=== PATIENT | female | born 1995 | race Caucasian/White ===

== ENCOUNTER → 2023-01-04 | Outpatient (CLI) | payer MEDICAID, SELFPAY | END | disposition home or self-care (01) | LOC: LAB 14:30 | PROVIDERS: Visit Provider Obstetrics & Gynecology | DX: O26.851 Spotting complicating pregnancy, first trimester (principal); Z3A.00 Weeks of gestation of pregnancy not specified | CPT/HCPCS: 36415; 84702; 86850; 86870; 86900; 86901 ==

== ENCOUNTER → 2023-01-08 | Outpatient (CLI) | payer MEDICAID, SELFPAY | END | disposition home or self-care (01) | PROVIDERS: Referring Provider Obstetrics & Gynecology; Visit Provider Obstetrics & Gynecology | DX: R76.0 Raised antibody titer (principal) | CPT/HCPCS: 36415 ==

== ENCOUNTER → 2023-01-11 | Outpatient (CLI) | payer MEDICAID, SELFPAY ==
--- NOTE | 2023-01-11 14:10 | US_ITS ---
STUDY: FIRST TRIMESTER OBSTETRICAL ULTRASOUND REASON FOR EXAM: Female, 27 years old well being LMP: November 21, 2022. TECHNIQUE: Transvaginal TECHNICAL QUALITY: Adequate. PRIOR ULTRASOUND: None. FINDINGS: There is visualization of a single gestational sac in a normal intrauterine position. The mean sac diameter (MSD) measures 2.96 cm, indicating an estimated gestational age (EGA) of 8 weeks, 1 days. The gestational sac shape is within normal limits. There is a visualized yolk sac. The yolk sac measures 2.9 mm. The placenta is non-visualized. There is visualization of a live embryo. The crown-rump length (CRL) measures 1.52 cm, indicating an estimated gestational age (EGA) of 7 weeks, 6 days. There is demonstrated cardiac activity with a heart rate of 168 bpm. The estimated gestation age (EGA) by LMP is 7 weeks, 2 days. The estimated date of delivery (ABDIEL) by LMP is August 28, 2023. The estimated gestation age (EGA) by US is 8 weeks, 0 days. The estimated date of delivery (ABDIEL) by US is August 23, 2023. The uterus measures 11 cm x 7 cm x 5.8 cm. There is no demonstrated uterine fibroid. The cervix is closed. The right ovary measures 3.3 cm x 2.3 cm x 2.2 cm. There is no right ovarian cyst. There is no visualized right adnexal mass or complex lesion. The left ovary measures 2.7 cm x 1.5 cm x 1.5 cm. There is no left ovarian cyst. There is no visualized left adnexal mass or complex lesion. There is no fluid in the cul de sac. US/Transvaginal w/Preg US IMPRESSION: Single live intrauterine gestation with a mean gestational age of 8 weeks. Electronically Signed: Wenceslao Myers MD at 15:43 EDT ,
== END | disposition home or self-care (01) ==
LOC: OPUS 14:09
PROVIDERS: Referring Provider Obstetrics & Gynecology; Visit Provider Obstetrics & Gynecology
DX: O26.851 Spotting complicating pregnancy, first trimester (principal); Z3A.00 Weeks of gestation of pregnancy not specified
CPT/HCPCS: 76817

== ENCOUNTER → 2023-01-25 | Outpatient (CLI) | payer MEDICAID, SELFPAY ==
[2023-01-27 13:07] LABS: Chlamydia By Nucleic Acid AMP Negative (Negative); Gonococcus By Nucleic Acid AMP Negative (Negative)
[2023-01-31 16:34] LABS: HPV Reflexed? NOT INDICATED
== END | disposition home or self-care (01) ==
LOC: LABSPEC 11:33
PROVIDERS: Referring Provider Obstetrics & Gynecology; Visit Provider Obstetrics & Gynecology
DX: Z34.90 Encounter for supervision of normal pregnancy, unspecified, unspecified trimester (principal)
CPT/HCPCS: 87086; 87491; 87591; 88175; G0145

== ENCOUNTER → 2023-01-30 | Outpatient (CLI) | payer MEDICAID, SELFPAY ==
[2023-01-30 12:04] LABS: Absolute Lymphocyte Count 2.41 X10^3/uL (0.83-4.51); Absolute Neutrophil Count 5.5 X10^3/uL (2.0-7.7); Basophil# 0.01 X10^3/uL; Basophil% 0.1 % (0-1); Eosinophil# 0.11 X10^3/uL; Eosinophils% 1.3 % (0-5); Hematocrit 36.2 % (37-47); Hemoglobin 12.2 g/dL (12.0-15.0); Lymphocyte # 2.41 X10^3/ul (0.83-4.51); Lymphocyte % 28.1 % (19-41); Mean Corp Hgb Conc 33.7 g/dL (32-36); Mean Corpuscular Hgb 30.1 pg (27.0-32.0); Mean Corpuscular Volume 89.4 fL (81-99); Mean Platelet Vol. 9.9 fl (6.2-12.0); Monocyte# 0.56 X10^3/uL; Monocyte% 6.5 % (0-10); NRBC Flagged by Analyzer 0 % (0-5); Neutrophil # 5.47 X10^3/uL (2.7-7.7); Neutrophil % 63.7 % (47-70); Platelet Count 239 K/mm3 (150-450); RBC Distribution Width SD 42.5 fl (35.1-43.9); Red Blood Count 4.05 M/mm3 (4.2-5.4); White Blood Count 8.6 K/mm3 (4.4-11.0)
[2023-01-30 12:45] LABS: NATERA MAILED SPECIMEN
[2023-01-30 13:35] LABS: HIV - WCH Non-Reactive (Nonreactive); Hepatitis B Surface Antigen Non-Reactive (Nonreactive); Hepatitis C Antibody Non-Reactive (Nonreactive); Rubella IgG Reactive (Nonreactive); Syphilis Antibodies Non-reactive
== END | disposition home or self-care (01) ==
LOC: PAVLAB 11:41
PROVIDERS: Referring Provider Obstetrics & Gynecology; Visit Provider Obstetrics & Gynecology
DX: Z34.81 Encounter for supervision of other normal pregnancy, first trimester (principal)
CPT/HCPCS: 36415; 82950; 85025; 86703; 86762; 86780; 86803; 86850; 86900; 86901; 87340

== ENCOUNTER → 2023-03-19 | Outpatient (CLI) | payer MEDICAID, SELFPAY | END | disposition home or self-care (01) | PROVIDERS: Referring Provider Nurse Practitioner Women's Health; Visit Provider Nurse Practitioner Women's Health | DX: Z36.9 Encounter for antenatal screening, unspecified (principal) | CPT/HCPCS: 36415 ==

== ENCOUNTER → 2023-04-16 | Outpatient (CLI) | payer MEDICAID, SELFPAY ==
--- NOTE | 2023-04-16 09:55 | US_ITS ---
INDICATION: anatomy EXAMINATION: Ultrasound US OB Complete W/ Detail single or first gestation TECHNIQUE: Transabdominal pelvic ultrasound was performed. COMPARISON: Prior study dated: 01/11/2023 LMP: 11/21/2022 Beta-hCG: Unknown. Provided EGA: 20 weeks, 6 days FINDINGS: INTRAUTERINE GESTATION(s): Single. ESTIMATED GESTATIONAL AGE: 20 weeks, 6 days ESTIMATED DUE DATE (ABDIEL): 08/28/2022 HEART MOTION is 153 bpm. AMNIOTIC FLUID INDEX (WILBER): Not provided. Largest pocket measuring 5 x 3 cm. ESTIMATED WEIGHT: 09[birth year]14/1989 5 g Percentile 54th%. BIOPHYSICAL PROFILE (BPP): BIOMETRIC MEASUREMENTS: HEAD CIRCUMFERENCE: 19.1 cm which corresponds to 21 weeks, 2 days. BIPARIETAL DIAMETER: 5.0 cm which corresponds to 21 weeks, 2 days. ABDOMINAL CIRCUMFERENCE: 16.6 cm which corresponds to 21 weeks, 4 days. FEMORAL LENGTH: 3.3 cm which corresponds to 20 weeks, 1 day. anatomy: Normal cranium, chest, abdomen/pelvis, spine and extremities. PRESENTATION: Breech PLACENTA: Posterior. There is no placenta previa or abruption. A succenturiate lobe is present. CERVIX: The cervix is closed, and measures 5.5 cm. MATERNAL OVARIES: No adnexal masses. FREE FLUID: None. US/OB Anatomy w/ Transvaginal IMPRESSION: * Single live intrauterine with an estimated gestational age by current ultrasound of 20 weeks, 6 days. * Estimated weight is 395 g which is in the 54th percentile. * Fetus is in the breech position. * Succenturiate lobe lobe of the placenta present. Electronically Signed: Rafita Chan MD at 16:59 EDT ,
== END | disposition home or self-care (01) ==
LOC: OPUS 09:54 → US 09:55
PROVIDERS: Referring Provider Obstetrics & Gynecology; Visit Provider Obstetrics & Gynecology
DX: O09.91 Supervision of high risk pregnancy, unspecified, first trimester (principal); Z3A.13 13 weeks gestation of pregnancy
CPT/HCPCS: 76805; 76817

== ENCOUNTER → 2023-05-28 | Outpatient (CLI) | payer MEDICAID, SELFPAY ==
[2023-05-28 10:07] LABS: Absolute Lymphocyte Count 1.96 X10^3/uL (0.83-4.51); Absolute Neutrophil Count 7.8 X10^3/uL (2.0-7.7); Basophil# 0.02 X10^3/uL; Basophil% 0.2 % (0-1); Hematocrit 34.1 % (37-47); Hemoglobin 11.2 g/dL (12.0-15.0); Lymphocyte # 1.96 X10^3/ul (0.83-4.51); Lymphocyte % 18.6 % (19-41); Mean Corp Hgb Conc 32.8 g/dL (32-36); Mean Corpuscular Volume 91.4 fL (81-99); Mean Platelet Vol. 10.5 fl (6.2-12.0); Monocyte% 5.7 % (0-10); NRBC Flagged by Analyzer 0 % (0-5); Neutrophil # 7.79 X10^3/uL (2.7-7.7); Neutrophil % 74.1 % (47-70); Platelet Count 206 K/mm3 (150-450); RBC Distribution Width CV 12.4 % (11.6-14.6); RBC Distribution Width SD 41.5 fl (35.1-43.9); Red Blood Count 3.73 M/mm3 (4.2-5.4); White Blood Count 10.5 K/mm3 (4.4-11.0)
[2023-05-28 10:26] LABS: Glucose Challenge Gest 1H 50g 117 mg/dL (70-140)
[2023-05-28 11:00] LABS: HIV - WCH Non-Reactive (Nonreactive); Syphilis Antibodies Non-reactive
== END | disposition home or self-care (01) ==
LOC: PAVLAB 09:47
PROVIDERS: Referring Provider Advanced Practice Midwife; Visit Provider Advanced Practice Midwife
DX: Z00.00 Encounter for general adult medical examination without abnormal findings (principal)
CPT/HCPCS: 36415; 82950; 85025; 86703; 86780

== ENCOUNTER → 2023-08-03 | Outpatient (CLI) | payer MEDICAID, SELFPAY ==
--- OUTSIDE RECORDS SUMMARY | 2023-08-03 16:47 | XMS RPT_ITS | CCD ---
Author Name Unknown Address [address] [place] [address] Organization [facility] Care Team Providers Care Sanitation Manager Name Role Phone [place], Asif W Unavailable Unavailable [place], Asif W Unavailable Unavailable No Doctor Assigned, Nodr Unavailable Unavail able No Doctor Assigned, Nodr Unavailable Unavail able Monalisa, Asif W Unavailable Unavailable [place], Asif W Unavailable Unavailable Rafita Reyes Unavailable Unavailable No Doctor Assigned, Nodr Unavailable Unavail able Rafita Reyes Unavailable Unavailable No Doctor Assigned, Nodr Unavailable Unavail able Rafita Reyes Unavailable Unavailable Rafita Reyes Unavailable Unavailable No Doctor Assigned, Nodr Unavailable Unavail able Rafita Reyes Unavailable Unavailable Alysia White Unavailable Unavailable No Doctor Assigned, Nodr Unavailable Unavail able No Doctor Assigned, Nodr Unavailable Unavail able Sokari, Telemate Unavailable Unavailable Sokari, Telemate Unavailable Unavailable Rafita Reyes Unavailable Unavailable No Doctor Assigned, Nodr Unavailable Unavail able Rafita Reyes Unavailable Unavailable Rafita Reyes Unavailable Unavailable No Doctor Assigned, Nodr Unavailable Unavail able Ms. Mara Martin Attending Unavail able Mara Tillman Primary Care DIETER Brown Primary Care Unavailable VENKAT WEEMS Referring UnavailSARAH Fine Attending Unavailable DIETER BARRETO Primary Care Unavailable VENKAT WEEMS Referring UnavailSARAH Fine Attending Unavailable VENKAT WEEMS Referring UnavailBRENDON Hopkins Attending Unavailable DIETER BARRETO Primary Care Unavailable Allergies Allergy Classification Reported Allergen(s) Allergy Type Date of Onset Reaction(s) Facility (1 source) No Known Medication Allergies; Translations: [No Known Medication Allergies] Propensity to adverse reactions to drug (disorder) [facility] Repository Problems Problem Classification Problem Date Documented Da te Episodic/Chronic Influenza (1 source) Influenza due to other identified influenza virus with other respiratory manifestations; Translations: [Flu due to oth ident influenza virus w oth resp manifest] Onset: 07-04-2022 Episodic Malaise and fatigue (1 source) Other fatigue; Translations: [Other fatigue] Onset: 07-04-2022 Episodic Residual codes; unclassified (1 source) Pain, unspecified; Translations: [Pain, unspecified] Onset: 07-04-2022 Episodic Unclassified (1 source) Contact with and (suspected) exposure to COVID-19; Translations: [Contact with and (suspected) exposure to COVID-19] Onset: 07-04-2022 Unclassified (1 source) Cough, unspecified; Translations: [Cough, unspecified] Onset: 07-04-2022 Results Test Name Value Interpretation Reference Range Facil ity Encounters Encounter Date Encounter Type Care Provider Facility Start: 02-21-2023 End: 02-21-2023 ambulatory VENKAT WEEMS [facility] Start: 02-14-2023 End: 02-14-2023 ambulatory DIETER BARRETO [facility] Start: 07-04-2022 End: 07-04-2022 Emergency department patient visit Ms. Mara Kesslerdanaemichelle Facility:[id number] Start: 09-12-2017 End: 09-12-2017 Ambulatory Rafita Reyes Facility:[facility] Start: 09-04-2017 End: 09-05-2017 Ambulatory Rafita Reyes Facility:[facility] Start: 09-04-2017 End: 09-04-2017 Ambulatory Alysia White Facility:[facility] Start: 08-31-2017 End: 09-01-2017 Ambulatory Rafita Reyes Facility:[facility] Start: 08-29-2017 End: 08-30-2017 Emergency department patient visit Nodr No Doctor Assigned Facility:[facility] Start: 08-29-2017 End: 08-29-2017 Ambulatory Rafita Reyes Facility:[facility] Start: 08-28-2017 End: 08-29-2017 Ambulatory Rafita Reyes Facility:[facility] Start: 08-25-2017 End: 08-25-2017 Emergency department patient visit Nodr No Doctor Assigned Facility:[facility] Start: 02-20-2017 End: 02-20-2017 Emergency department patient visit Asif Sheldon Facility:[facility] Payers Date Payer Category Payer Unknown 1995 Unknown [id number] 1995 Unknown [id number] 1995 Unknown [id number] 1994 Unknown [id number] [id number]. [id number] Unknown [id number] Summary Purpose Family History No Family History Records FoundNo Family History Records FoundNo Family History Records FoundNo Family History Records Found Advance Directives No Advanced Directives Records FoundNo Advanced Directives Records FoundNo Advanced Directives Records FoundNo Advanced Directives Records Found Additional Source Comments INFORMATION SOURCE (unrecogn ized section and content) DATE CREATED AUTHOR AUTHOR'S ORGANIZ ATION 03/04/2018 [facility] DATE CREATED AUTHOR AUTHOR'S ORGANIZ ATION 07/07/2022 [facility] DATE CREATED AUTHOR AUTHOR'S ORGANIZ ATION 04/10/2023 [facility] FOR RECORDS PERTAINING TO PATIENTS WHO ARE OR HAVE BEEN ENROLLED IN A CHEMICAL DEPENDENCY/SUBSTANCEABUSE PROGRAM, SOME INFORMATION MAY BE OMITTED. This clinical summary was aggregated from multiple sources. Caution should be exercised in using it in the provision of clinical care. This summary normalizes information from multiple sources, and as a consequence, information in this document may materially change the coding, format and clinical context of patient data. In addition, data may be omitted in some cases. CLINICAL DECISIONS SHOULD BE BASED ON THE PRIMARY CLINICAL RECORDS. [facility] [employer] [facility]. provides no warranty or guarantee of the accuracy or completeness of information in this document.
== END | disposition home or self-care (01) ==
LOC: LABSPEC 16:43
PROVIDERS: Referring Provider Obstetrics & Gynecology; Visit Provider Obstetrics & Gynecology
DX: Z34.90 Encounter for supervision of normal pregnancy, unspecified, unspecified trimester (principal)

== ENCOUNTER → 2023-08-06 | Outpatient (CLI) | payer MEDICAID, SELFPAY ==
[2023-08-06 15:57] LABS: Group B Strep DNA By PCR Negative (Negative); Internal Control PASS; Probe Check PASS; Specimen Processing Control PASS
== END | disposition home or self-care (01) ==
LOC: LABSPEC 13:33
PROVIDERS: Referring Provider Registered Nurse; Visit Provider Registered Nurse
DX: Z34.90 Encounter for supervision of normal pregnancy, unspecified, unspecified trimester (principal)
CPT/HCPCS: 87081; 87653

== ENCOUNTER 2023-08-21 09:55 | Inpatient (IN) | payer MEDICAID, SELFPAY ==
[2023-08-21] VITALS (44 sets, daily range): BP systolic 93–124; BP diastolic 54–79; PULSE 80–97; RESP 10–24; TEMP 36.1–37.1; O2SAT 94–98; BMI 35.2
[2023-08-21] MEDS: Lactated Ringers 1,000 ML 999 ML IV (10:35)
[2023-08-21 10:46] LABS: Absolute Lymphocyte Count 1.95 X10^3/uL (0.83-4.51); Absolute Neutrophil Count 8.2 X10^3/uL (2.0-7.7); Basophil# 0.02 X10^3/uL; Basophil% 0.2 % (0-1); Eosinophil# 0.11 X10^3/uL; Hematocrit 33.9 % (37-47); Hemoglobin 11.2 g/dL (12.0-15.0); Lymphocyte # 1.95 X10^3/ul (0.83-4.51); Mean Corpuscular Hgb 28.6 pg (27.0-32.0); Mean Corpuscular Volume 86.7 fL (81-99); Mean Platelet Vol. 11.4 fl (6.2-12.0); Monocyte# 0.55 X10^3/uL; Monocyte% 5.1 % (0-10); NRBC Flagged by Analyzer 0 % (0-5); Neutrophil # 8.18 X10^3/uL (2.7-7.7); Neutrophil % 75.2 % (47-70); Platelet Count 233 K/mm3 (150-450); RBC Distribution Width CV 13.7 % (11.6-14.6); RBC Distribution Width SD 42.9 fl (35.1-43.9); Red Blood Count 3.91 M/mm3 (4.2-5.4); White Blood Count 10.9 K/mm3 (4.4-11.0)
[2023-08-21] MEDS: Acetaminophen 500 MG Tablet 1000 MG PO ×3 (11:19→23:06)
[2023-08-21 11:30] LABS: Syphilis Antibodies Non-reactive
[2023-08-21] MEDS: Sodium Citrate/Citric Acid 30 ML UDC PO (11:40)
[2023-08-21] MEDS: Lactated Ringers 1,000 ML 150 ML IV (11:40)
[2023-08-21] MEDS: Cefazolin 2 GM in 0.9% Normal Saline (100mL Bag) 100 ML IV (12:18)
--- NOTE | 2023-08-21 12:45 | FALS_PTH ---
PATHOLOGY RESULTS PATIENT: CHRIS GAO LOC: WP U#:[id number] AGE/SX: 27/F ROOM: WP007 RE08/21/[address]: Dr. Taina Ramirez MD : 1995 BED: 1 DIS: 08/22/2023 SPEC #: [id number] RECD: 08/21/23 15:19 STATUS: ERIN WENCESLAO #: [id number] KEITH: 08/21/23 12:[address]: Taina Ramirez DEPT: SURGICAL PATHOLOGY RECD BY: Patricia Lane ENTERED: 08/22/23 08:27 SP TYPE: FALL TUBES OTHR DR: No Primary Care Phys Tissues: Fallopian tube OVARIAN CYST Procedures: Surgery Specimen Level II Surgery Specimen Level IV HEADER OPERATION: Tubal ligation PRE-OP DIAGNOSIS: Sterilization, abnormal ovarian cyst TISSUE SUBMITTED: A - Fallopian tubes, suture in left tube, B - Right ovarian cyst MICROSCOPIC DIAGNOSIS A. Bilateral fallopian tubes, salpingectomy: Bilateral fallopian tubes, no pathologic diagnosis. B. Right ovarian cyst, cystectomy: Consistent with corpus luteal cyst with extensive calcification. See comment. SJ:rg 08/23/2023 COMMENT B. Normal ovarian tissue with focal physiologic follicular cyst is also noted surrounding the cyst. Case has been reviewed in consultation with Dr. Wright who concurs with the above diagnosis. IDC:AM MICROSCOPIC DESCRIPTION Slides are reviewed. GROSS DESCRIPTION A - Received in fixative is one container labeled with the patient's name and designated bilateral fallopian tubes, suture in left tube. The specimen consists of bilateral fallopian tubes including fimbrial ends. The right fallopian tube measures 8.5 cm in length and 0.5 cm in diameter and the left fallopian tube measures 8.0 cm in length and 0.5 cm in diameter. Sections reveal unremarkable cut surfaces. Manager Clinical Pharmacy sections are submitted in two cassettes as follows: 1 - right fallopian tube, 2 - left fallopian tube. B - Received in fixative is one container labeled with the patient's name and designated right ovarian cyst. The specimen consists of a nodular piece of tissue measuring 4.0 x 3.0 x 2.5 cm and weighing 9.9 gm. The outer surface is smooth and is inked black. Sections reveal yellow solid cut surfaces without area of hemorrhage, necrosis or cystic degeneration. Manager Clinical Pharmacy sections are submitted in five cassettes. About 90% of the specimen is submitted. / SJ:rg 08/22/2023 TC:5 CPT: 38733 x2, 74624
[2023-08-21] MEDS: Methylergonovine 0.2 MG/ML Ampul 0.200000000000000011 MG IM (12:49)
[2023-08-21] MEDS: Oxytocin 15 Units/NS 250ml 15 UNITS/250 ML IV.SOLN 83 UNITS IV (13:45)
--- NOTE | 2023-08-21 14:11 | OP.PCM_ITS ---
Assessment & Plan (1) Sterilization: COMMENT: title 19 signed 07/06 (2) Placenta succenturiata, antepartum: (3) H/O section: COMMENT: IOL- failure to progress plan RLTCS with SM and BS; Considering TOLAC/will discuss with SM, RC/S scheduled 08/21/23. 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 declines carrier testing, nl early OB US with NT low risk; AFP: FOB genetic test: neg. 06/19 (7) Abnormal antibody titer: COMMENT: mfm consult ordered anti kimani antibody/told not problematic for infant. Maternal Data Information ABDIEL Calculator Estimated Delivery Date Method Current WG Current Estimate 08/28/23 LMP (Certain) 39w 0d Final ABDIEL Source: LMP Details Operative Information Date of Procedure: 08/21/23 Pre-Operative Diagnosis: Previous Post-Operative Diagnosis: same Indications for : Repeat Elective Indications Narrative: Surgeon: Taina Ramirez MD Classification: Scheduled Procedure Type: low transverse (and bilateral salpingectomy, right ovarian cystectomy) [employer] #1: Adriana Holliday Type of Anesthesia: Spinal Special Medications: scotty Antibiotic Given: Ancef 2 grams IV x1 Drain: Rosenthal to straight drain Estimated Blood Loss: 800 Fluids Replaced: crystalloid Procedure Start Time: 12:40 Procedure Stop Time: 13:28 Findings Description of Procedure: Spinal anesthesia was placed without difficulty. Rosenthal catheter was placed. The patient was placed in the dorsal supine position with leftward tilt. Patient was prepped and draped in the normal sterile fashion. Pfannenstiel skin incision was made with the scalpel and carried through to the underlying layer of fascia with the scalpel. Fascia was nicked in the midline and the incision extended laterally. The rectus bellies were dissected off superiorly and inferiorly with out complication both sharply and bluntly. The peritoneum was e ntered digitally. The incision was stretched and a low transverse uterine incision was made with the scalpel. The infant's head was delivered atraumatically followed by the anterior and posterior shoulders without complication the rest of the delivered. The cord was clamped and cut and the infant was handed off to awaiting nurse. The placenta was delivered spontaneously immediately following and was noted to be intact and have a three- vessel cord. The uterus was exteriorized cleared of all clots and debris, and the incision was closed in a single layer closure using #1 Monocryl. additional suture placed over the right side of incision due to suture breakage. scotty used for hemostasis due to oozing at peritoneal edge. The left tube and ovary were wnl but the right ovary had a yellowish mass noted on it, so this was removed without rupturing using the ligasure device. Patient had desired sterilization and was counseled preoperatively regarding irreversibility and permanency. Therefore bilateral fallopian tubes were elevated and transected across using a LigaSure device starting proximally to distally without complication the entire fallopian tubes were removed. The uterus was returned to the maternal abdomen and gutters were cleared of all clots and debris. The peritoneum was closed with 3-0 Monocryl in a running fashion. Gloves were changed prior to fascial closure. Fascia was closed with 0 PDS in a running fashion. Subcutaneous tissue was copiously irrigated and the skin was closed with 3-0 Monocryl in a subcuticular fashion. Mepilex dressing was applied without complication. Patient was taken to recovery in stable condition. Amniotic Membrane Rupture Type: Artificial Amniotic Fluid Description: Clear Placenta Disposition: [facility] Cord Vessel Description: 3 Vessels Delayed Cord Clamping: Yes Complications Risks of Surgery Discussed w/Patient: Bleeding, Infection, Need for Future C- Sections and Injury to surrounding structure(s) including bowel and bladder Vaginal Delivery Complication Complications: None Admit VTE Documentation VTE Present on Admission: No VTE Mechan Device Prophylaxis: SCD's Multi Select Codes Urinary/Genital Urinary/Genital CPT Codes: 42478 C/S+TL (bilateral salpingectomy and right ovarian cystectomy) and 78382 delivery+ Care([facility])
--- NOTE | 2023-08-21 14:11 | PCM.HP.STD ---
HPI - General General Date of Admission: 08/21/23 HPI Narrative CHRIS GAO, is a 27 F who presents for RLTCS and [facility] Medical History (Updated 08/21/23 @ 17:[address] Taina Ramirez MD) Abnormal antibody titer Headache History of blood transfusion MRSA infection Home Medications multivit-min no.71-iron fum 28 mg-folate no.1 1 mg-dha 300 mg capsule (PNV-[place]rock) 1 cap PO DAILY 01/19/23 [History Last Taken 08/19/23 10:00 1 cap] naproxen 500 mg tablet 500 mg PO BID PRN PRN Pain #30 tabs 08/21/23 [Rx Last Taken Unknown] oxycodone-acetaminophen 5 mg-325 mg tablet (Percocet) 1 tab PO Q6H PRN pain 7 days #20 tabs 08/21/23 [Rx Last Taken Unknown] Allergy/AdvReac Type Severity Reaction Status Date / Time No Known Allergies Allergy Verified 08/21/23 10:50 Family History Father Heart murmur Grandmother Diabetes Paternal Breast cancer Paternal Surgical History (Updated 08/21/23 @ 17:[address] Taina Ramirez MD) History of appendectomy History of gynecologic surgery [place] teeth extracted Social History adopted: No household members: significant other, family and children number of children: 1 current occupational status: employed current occupation: cashier [employer] current occupational exposures/hazards: No pets and animals: Yes (not managing litterbox) pets and animals: cat(s) and dog(s) history of recent travel: No sexually active: Yes Smoking Status: Former smoker quit date: 01/05/23 alcohol intake: never substance use type: does not use well-balanced diet: about half the time caffeine: Yes Type: coffee Number of servings: 1 eating out: rarely or never during the past year weight has: increased > 10 lbs what type of physical activity do you participate in: none maripoas/mosque: None seatbelt use: sometimes do you feel safe at home: Yes additional social history: DIEGO- Froilan ACEVEDO Constitutional Constitutional: Reports systems reviewed and no addt'l complaints, except as documented Eyes Eyes: Denies change in vision ENT HEENT: Reports systems reviewed and no addt'l complaints, except as documented; Denies headache(s) Cardiovascular Cardiovascular: Reports systems reviewed and no addt'l complaints, except as documented; Denies chest pain or dyspnea Respiratory/Chest Respiratory/Chest: Reports systems reviewed and no addt'l complaints, except as documented Gastrointestinal Gastrointestinal: Reports systems reviewed and no addt'l complaints, except as documented; Denies abdominal pain Genitourinary Genitourinary: Reports systems reviewed and no addt'l complaints, except as documented, contractions Details: present (irregular) and movement Details: present; Denies dysuria or genital lesions Musculoskeletal Musculoskeletal: Reports systems reviewed and no addt'l complaints, except as documented Neurologic Neurologic: Reports systems reviewed and no addt'l complaints, except as documented Endocrine Endocrinology: Reports systems reviewed and no addt'l complaints, except as documented Vital Signs Vital Signs Vital Signs: 08/21/23 11:02 08/21/23 10:48 08/21/23 10:48 Temperature 98.0 F Temperature Source Temporal Pulse Rate 95 83 Respiratory Rate 16 Respiratory Pattern Blood Pressure 115/70 115/70 Blood Pressure Mean 85 BP Systolic 115 BP Diastolic 70 Blood Pressure Source Monitor Blood Pressure Position Semi-Fowlers Blood Pressure Location Right Arm Baseline BP Pulse Ox 97 Oxygen Delivery Method Room Air 08/21/23 10:47 08/21/23 14:07 08/21/23 14:09 Temperature Temperature Source Pulse Rate Respiratory Rate Respiratory Pattern Normal Blood Pressure Blood Pressure Mean BP Systolic BP Diastolic Blood Pressure Source Blood Pressure Position Blood Pressure Location Baseline BP 115/70 115/70 Pulse Ox 97 Oxygen Delivery Method 08/21/23 13:39 08/21/23 13:40 08/21/23 13:45 Temperature Temperature Source Pulse Rate 96 89 Respiratory Rate 14 Respiratory Pattern Blood Pressure 104/70 93/75 Blood Pressure Mean 80 81 BP Systolic BP Diastolic Blood Pressure Source Blood Pressure Position Blood Pressure Location Baseline BP Pulse Ox 95 94 96 Oxygen Delivery Method 08/21/23 14:00 Temperature Temperature Source Pulse Rate 87 Respiratory Rate 20 H Respiratory Pattern Blood Pressure 107/60 Blood Pressure Mean 74 BP Systolic BP Diastolic Blood Pressure Source Blood Pressure Position Blood Pressure Location Baseline BP Pulse Ox 97 Oxygen Delivery Method Weight Weight: 192 lb 3.889 oz Body Mass Index (BMI) 35.2 Physical Exam Const alert, oriented x3, no apparent distress and healthy appearing HEENT normocephalic and moist oral mucous membranes Head and Scalp: atraumatic Neck full ROM, no lymphadenopathy, supple and thyroid normal General: trachea midline Lymph Lymphatic: no lymphadenopathy noted Chest inspection of chest normal Resp normal respiratory effort Cardio regular rate GI normal to inspection, nondistended, normoactive bowel sounds, soft to palpation and non-tender Inspection: gravid external exam normal Manual OB Exam: estimated gestational size appropriate, presentation cephalic, dilated, effaced and station Extremity normal to inspection General Extremity: Negative for edema Skin no rashes or lesions noted Neuro no focal motor deficits and deep tendon reflexes 2+ bilaterally Motor Exam: strength 5/5 throughout and clonus absent Psych mental status grossly normal Results Lab / Micro Data 08/21/23 10:35 Labs: Laboratory Results - last 24 hr 08/21/23 10:35: WBC 10.9, RBC 3.91 L, Hgb 11.2 L, Hct 33.9 L, MCV 86.7, MCH 28.6, MCHC 33.0, RDW Std Deviation 42.9, RDW Coeff of Bladimir 13.7, Plt Count 233, MPV 11.4, Immature Gran % (Auto) 0.500, Neut % (Auto) 75.2 H, Lymph % (Auto) 18.0 L, [place] % (Auto) 5.1, Eos % (Auto) 1.0, Baso % (Auto) 0.2, Absolute Neuts (auto) 8.2 H, Absolute Lymphs (auto) 1.95, Nucleated RBC % 0, Syphilis Total Ab Non-reactive, Blood Type A POSITIVE, Antibody Screen POSITIVE, Antibody Identification ANTI-Kita, Crossmatch See Detail Assessment & Plan Assessment/Plan (1) delivery delivered: PLAN: Plan plan RLTCS and BS
[2023-08-21] MEDS: Ketorolac 30 MG/ML Syringe IV ×2 (14:26→20:46)
[2023-08-21] MEDS: Lactated Ringers 1,000 ML 100 ML IV (16:48)
--- NOTE | 2023-08-21 17:12 | DCINST_ITS ---
Discharge Instructions Diet Discharge Diet: No restrictions Activity Discharge Activity: May Not Drive (for 2 weeks or while taking narcotic pain medications.), May Shower and May Take a Tub Bath (in 7 days) May shower in (days): 0 May resume sexual activity in: 4-6 weeks Weight Bearing Status: Full weight bearing Lifting Restrictions: 20 pounds Dressing / Incision Call your doctor if your incision/area has: Continuous Slow Oozing, Sudden Increased Bleeding, Increased Pain/ Swelling, Increased Redness and Foul Smelling Discharge Call your doctor if you observe: Fever of 101 or Higher and Using more than 1 pad per hour (for 2 hours) Suture Line Care: Avoid Pulling/Pushing and Avoid Pinching/Bending Cleanse incision/area with: Soap & Water and Keep Dressing Clean & Dry Follow Up Care Please Follow Up With: Taina Ramirez MD When: Call [phone] to make an appointment for an incision check in 1-2 weeks. Test Results: Test results from this visit will be discussed in further detail at your follow- up appointment, if applicable. Discharge Plan Admission Admit Date/Time: 08/21/23 09:55 Attending Provider: Taina Ramirez Primary Care Provider: Care Physician,Rosalba Primary Discharge Orders/Prescriptions Prescriptions: New oxycodone-acetaminophen [Percocet] 5-325 mg tablet 1 tab PO Q6H PRN (Reason: pain) 7 Days Qty: 20 0RF naproxen [naproxen] 500 mg tablet 500 mg PO BID PRN PRN (Reason: Pain) Qty: 30 1RF No Action PNV-[place] 28-1-300 mg capsule 1 cap PO DAILY Referrals / Follow Up: Care Physician,No Primary [Primary Care Provider] -
[2023-08-21] MEDS: LACTATED RINGERS 500 ML 999 ML IV (19:51)
[2023-08-21] MEDS: 0.9% Saline Lock 10 ML Syringe IV (20:45)
--- NOTE | 2023-08-21 21:39 | NURSING ---
1945: Notified Christina Richmond of pt's urine output of 25cc/hr average for the last 4 hours. Orders given to give 500cc LR bolus and recheck urine output in 45 minutes. If urine output is between 50-100cc RN okay to give IV Torodol.
[2023-08-22] MEDS: Ketorolac 30 MG/ML Syringe IV ×2 (02:10→08:24)
[2023-08-22] MEDS: 0.9% Saline Lock 10 ML Syringe IV ×2 (02:10→12:49)
[2023-08-22] MEDS: Acetaminophen 500 MG Tablet 1000 MG PO ×2 (04:57→12:47)
[2023-08-22 04:58] VITALS: BP 104/58; RESP 16; TEMP 36.6
[2023-08-22 05:36] LABS: Hematocrit 25.3 % (37-47); Hemoglobin 8.5 g/dL (12.0-15.0); Mean Corp Hgb Conc 33.6 g/dL (32-36); Mean Corpuscular Hgb 28.9 pg (27.0-32.0); Mean Corpuscular Volume 86.1 fL (81-99); Mean Platelet Vol. 11.6 fl (6.2-12.0); Platelet Count 226 K/mm3 (150-450); RBC Distribution Width CV 13.6 % (11.6-14.6); RBC Distribution Width SD 42.5 fl (35.1-43.9); Red Blood Count 2.94 M/mm3 (4.2-5.4); White Blood Count 15.3 K/mm3 (4.4-11.0)
--- NOTE | 2023-08-22 05:50 | NURSING ---
05:45 Notified Nereyda on unit that pt's hemaglobin levels this AM went from 11.2 on admission to 8.5. Patient not symptomatic and bleeding is appropriate. Orders to watch patient and redraw CBC at 1000.
[2023-08-22 06:38] LABS: Pathology Specimen OB SEE PATHOLOGY REPORT
--- NOTE | 2023-08-22 07:50 | PCM.PN.OB ---
Subjective Subjective Patient doing well without complaints. Tolerating PO. Ambulating and voiding without difficulty. Feeding well. Denies chest pain, shortness of breath, calf pain/swelling, fevers, chills, lightheadedness. Objective Data Objective Data Vital Signs: Vital Signs Temp Pulse Resp BP Pulse Ox O2 Del Method 97.8 F 97 16 104/58 L 97 Room Air 08/22/23 04:58 08/21/23 21:54 08/22/23 04:58 08/22/23 04:58 08/21/23 21:54 08/22/23 04:58 Oxygen Delivery Method Room Air Weight: 192 lb 3.889 oz Body Mass Index (BMI) 35.2 Intake & Output: Intake and Output for Last 24 Hours 08/20/23 08/21/23 08/22/23 23:59 23:59 23:59 Intake Total 1955 / 1955 945 / 945 Output Total 1410 / 1410 700 / 700 Balance 545 / 545 245 / 245 Lab / Micro Data 08/22/23 05:05 Labs: Laboratory Results - last 24 hr 08/21/23 10:35: WBC 10.9, RBC 3.91 L, Hgb 11.2 L, Hct 33.9 L, MCV 86.7, MCH 28.6, MCHC 33.0, RDW Std Deviation 42.9, RDW Coeff of Bladimir 13.7, Plt Count 233, MPV 11.4, Immature Gran % (Auto) 0.500, Neut % (Auto) 75.2 H, Lymph % (Auto) 18.0 L, Christian % (Auto) 5.1, Eos % (Auto) 1.0, Baso % (Auto) 0.2, Absolute Neuts (auto) 8.2 H, Absolute Lymphs (auto) 1.95, Nucleated RBC % 0, Syphilis Total Ab Non-reactive, Blood Type A POSITIVE, Antibody Screen POSITIVE, Antibody Identification ANTI-Kimani, Crossmatch See Detail 08/22/23 05:05: WBC 15.3 H, RBC 2.94 L, Hgb 8.5 L, Hct 25.3 L, MCV 86.1, MCH 28.9, MCHC 33.6, RDW Std Deviation 42.5, RDW Coeff of Bladimir 13.6, Plt Count 226, MPV 11.6 Physical Exam Const alert and oriented x3 HEENT normocephalic Eyes PERRL Neck full ROM Resp normal respiratory effort GI soft to palpation GI Narrative: FF below U. Dressing dry and intact Palpation: tender other (appropriately) Assessment & Plan (1) delivery delivered: COMMENT: rltcs bs SM boy Luca 38 (2) H/O ovarian cystectomy: COMMENT: right ovarian cyst seen at time of csection (3) Abnormal antibody titer: COMMENT: mfm consult ordered anti kimani antibody/told not problematic for . (4) Anemia: QUALIFIERS: Anemia type: iron deficiency Iron deficiency anemia type: other iron deficiency Qualified Code(s): D50.8 - Other iron deficiency anemias COMMENT: rpt cbc at 10am PLAN: Plan s/p LTCS PPD # 1 1. routine post care 2. breast feeding- support given 3. rh positive 4. rubella immune 5. CBC at 10 am 6. probable home today
[2023-08-22 08:31] VITALS: BP 100/68; PULSE 84; RESP 16; TEMP 36.7; O2SAT 98
[2023-08-22 10:43] LABS: Absolute Lymphocyte Count 3.38 X10^3/uL (0.83-4.51); Absolute Neutrophil Count 10.1 X10^3/uL (2.0-7.7); Basophil# 0.04 X10^3/uL; Basophil% 0.3 % (0-1); Eosinophil# 0.07 X10^3/uL; Eosinophils% 0.5 % (0-5); Hematocrit 25.1 % (37-47); Hemoglobin 8.2 g/dL (12.0-15.0); Lymphocyte # 3.38 X10^3/ul (0.83-4.51); Mean Corp Hgb Conc 32.7 g/dL (32-36); Mean Corpuscular Hgb 28.4 pg (27.0-32.0); Mean Corpuscular Volume 86.9 fL (81-99); Mean Platelet Vol. 11.5 fl (6.2-12.0); Monocyte# 0.99 X10^3/uL; Monocyte% 6.7 % (0-10); NRBC Flagged by Analyzer 0 % (0-5); Neutrophil # 10.14 X10^3/uL (2.7-7.7); Neutrophil % 68.9 % (47-70); Platelet Count 223 K/mm3 (150-450); RBC Distribution Width CV 13.6 % (11.6-14.6); RBC Distribution Width SD 42.4 fl (35.1-43.9); Red Blood Count 2.89 M/mm3 (4.2-5.4); White Blood Count 14.7 K/mm3 (4.4-11.0)
[2023-08-22 12:45] VITALS: BP 106/62; PULSE 86; RESP 16; TEMP 36.6; O2SAT 96
[2023-08-22] MEDS: Senna/Docusate Sodium 1 Tablet PO (12:47)
[2023-08-22] MEDS: Iron Sucrose Complex 300 MG in 0.9% Normal Saline (250mL Bag) 250 ML 176.699999999999989 MG IV (12:49)
[2023-08-22] MEDS: Naproxen 500 MG Tablet PO (15:30)
== END 2023-08-22 15:45 | disposition home or self-care (01) | DRG 539 ==
PROVIDERS: Advanced Practice Midwife; Admitting Provider Obstetrics & Gynecology; Visit Provider Obstetrics & Gynecology
PROC: 10D00Z1 Extraction of Products of Conception, Low, Open Approach (ICD-10-PCS; CPT 59514; principal; 2023-08-21 11:45)
DX: O34.211 Maternal care for low transverse scar from previous cesarean delivery (principal); D50.8 Other iron deficiency anemias; N83.11 Corpus luteum cyst of right ovary; O34.83 Maternal care for other abnormalities of pelvic organs, third trimester; Z37.0 Single live birth; O43.193 Other malformation of placenta, third trimester; Z3A.38 38 weeks gestation of pregnancy; O99.892 Other specified diseases and conditions complicating childbirth; R76.0 Raised antibody titer; O90.81 Anemia of the puerperium; Z87.891 Personal history of nicotine dependence; Z87.59 Personal history of other complications of pregnancy, childbirth and the puerperium; Z30.2 Encounter for sterilization
CPT/HCPCS: 59025; 59050; 85025; 85027; 86780; 86850; 86870; 86900; 86901; 86902; 86920; 86922; 88302; 88305; 99221; J1756; J7050; J7120; A4216; G0378; J2405